=== PATIENT | female | born 1970 | race African-American/Black ===

== ENCOUNTER → 2016-11-06 | Outpatient (CLI) | payer OTHER ==
[~2016-11-06] MED LIST: CLONAZEPAM0.5 MG PO; HCTZ PO; PROZAC PO
[2016-11-06 10:21] LABS: CHOLESTEROL 202 mg/dL (0-200); HDL CHOLESTEROL 52 mg/dL (35-95); LDL/HDL RATIO 3 RATIO (0-4); TRIGLYCERIDES 73 mg/dL (10-160)
[2016-11-06 10:23] LABS: LDL CHOLESTEROL 135 mg/dL (-130)
== END | disposition home or self-care (01) ==
LOC: CLAB 09:11
PROVIDERS: Surgery
DX: E66.01 Morbid (severe) obesity due to excess calories (principal)
CPT/HCPCS: 36415; 80061; 82947

== ENCOUNTER → 2016-11-06 | Outpatient (CLI) | payer SELFPAY | END | disposition home or self-care (01) | LOC: CBAR 08:26 | DX: E66.01 Morbid (severe) obesity due to excess calories (principal) | CPT/HCPCS: 76000 ==